=== PATIENT | male | born 1950 | race Caucasian/White ===

== ENCOUNTER 2019-11-04 12:14 | Outpatient (CLI) | payer MEDICARE, OTHER ==
[2019-11-04] MEDS ORDERED: NONE PER PT (12:45)
== END 2019-11-04 23:59 | disposition home or self-care (01) ==
LOC: STAR 12:14
PROVIDERS: ATTEND Surgery
DX: Z01.818 Encounter for other preprocedural examination (principal); K40.20 Bilateral inguinal hernia, without obstruction or gangrene, not specified as recurrent
CPT/HCPCS: 93005

== ENCOUNTER 2019-11-12 07:36 | Day surgery (SDC) | payer MEDICARE, OTHER ==
[~2019-11-12] VITALS: Ht 180.3 cm; Wt 71.9 kg
[~2019-11-12 07:36] MED LIST: BACITRACIN 50,000 UNIT ONE; BUPIVACAINE/PF 0.5% ONE; NONE PER PT
[2019-11-12] MEDS ORDERED: LACTATED RINGERS 1,000 ML IV SCH (08:00)
[2019-11-12] MEDS ORDERED: OxyconTIN ER 10 MG TAB.ER PO ONE (08:00)
[2019-11-12] MEDS ORDERED: GABAPENTIN 300 MG CAPSULE PO ONE (08:00)
[2019-11-12] MEDS ORDERED: ACETAMINOPHEN 500 MG TABLET PO ONE (08:00)
[2019-11-12] MEDS ORDERED: LIDOCAINE-MPF 1%, 2ML INFIL ONE (08:00)
[2019-11-12] MEDS ORDERED: FENTANYL PF 250 MCG/5ML ONE (08:04)
[2019-11-12] MEDS ORDERED: MIDAZOLAM 1 MG/ML, 2ML ONE (08:04)
[2019-11-12 08:21] VITALS: BP 164/93
[2019-11-12] MEDS ORDERED: PROPOFOL 10 MG/ML, 20ML ONE (09:16)
[2019-11-12] MEDS ORDERED: DEXAMETHASONE 4 MG/ML, 1ML ONE (09:16)
[2019-11-12] MEDS ORDERED: ONDANSETRON 2MG/ML, 2ML ONE (09:16)
[2019-11-12] MEDS ORDERED: CEFAZOLIN 1,000 MG ONE (09:16)
[2019-11-12] MEDS ORDERED: BUPIVACAINE/PF 0.25% ONE ×2 (09:17)
[2019-11-12] MEDS ORDERED: KETOROLAC 30 MG/1 ML ONE (09:17)
[2019-11-12] MEDS ORDERED: MIDAZOLAM 1 MG/ML, 2ML IV PRN (09:30)
[2019-11-12] MEDS ORDERED: FENTANYL PF 100 MCG/2ML IV PRN (09:30)
[2019-11-12] MEDS ORDERED: MEPERIDINE/PF 25MG/ML,1ML IVPush PRN (09:30)
[2019-11-12] MEDS ORDERED: DIAZEPAM 5 MG/ML, 2ML IVPush PRN (09:30)
[2019-11-12] MEDS ORDERED: ALBUTEROL/IPRATROPIUM 2.5MG/0.5MG, 3 ML NPPB PRN (09:30)
[2019-11-12] MEDS ORDERED: hydrALAzine 20 MG/ML, 1ML IV PRN (09:30)
[2019-11-12] MEDS ORDERED: OXYcodone 5 MG/5 ML ORAL.SOL UDC PO PRN (09:30)
[2019-11-12] MEDS ORDERED: PROMETHAZINE 25 MG/ML, 1ML IV PRN (09:30)
[2019-11-12] MEDS ORDERED: METOPROLOL 1 MG/ML, 5ML IV PRN (09:30)
[2019-11-12] MEDS ORDERED: HYDROmorphone 1 MG/ML, 1ML INJ IVPush PRN (09:30)
== END 2019-11-12 15:15 | disposition home or self-care (01) ==
LOC: OUT 07:36
PROVIDERS: ATTEND Surgery
DX: K40.20 Bilateral inguinal hernia, without obstruction or gangrene, not specified as recurrent (principal); I10 Essential (primary) hypertension; J45.909 Unspecified asthma, uncomplicated; Z88.1 Allergy status to other antibiotic agents; Z83.3 Family history of diabetes mellitus; Z82.49 Family history of ischemic heart disease and other diseases of the circulatory system
CPT/HCPCS: 49505; 64488; J0690; J1100; J1885; J2250; J2405; J2704; J3010; J3490; J7120